=== PATIENT | female | born 1950 ===

== ENCOUNTER 2020-06-09 12:43 | Inpatient (IN) ==
[~2020-06-09 12:43] MED LIST: Buffered Lidocaine 1% SYRIN 1 ml INTRADERM ONE; DiMENhydriNATE IV 50 mg/ml 1 ml VIAL IV PUSH PRN; Lactated Ringers 1000 ml BAG 1,000 ML IV SCH; Naloxone 0.4 mg VIAL 0.4 mg/ml 1 ml VIAL IV PRN; Ondansetron 4 mg VIAL 2 MG/ML 2 ml VIAL IV PRN; oxyCODONE/Acetamin 5/325 mg TAB PO PRN
[2020-06-09] MEDS ORDERED: fentaNYL 250 mcg/5 ml 50 MCG/ML 5 ml VIAL (250 MCG) ONE (12:54)
[2020-06-09] MEDS ORDERED: Propofol 10 MG/ML 20 ML BTL ONE (12:54)
[2020-06-09] MEDS ORDERED: Lidocaine 2% PF 5 ML VIAL ONE (12:54)
[2020-06-09] MEDS ORDERED: Rocuronium 50 mg VIAL 10 mg/ml 5 ml VIAL (50 mg) ONE ×2 (12:54→15:34)
[2020-06-09] MEDS ORDERED: Midazolam 2 mg/2 ml VIAL 1 mg/ml 2 ml VIAL (2 mg) ONE (12:55)
[2020-06-09] MEDS ORDERED: ceFAZolin 2 GM PREMIX 2 GM/50 ML BAG ONE (13:43)
[2020-06-09] MEDS ORDERED: Phenylephrine 40 mcg/mL 10mL (400mcg) SYRINGE ONE (14:45)
[2020-06-09] MEDS ORDERED: fentaNYL 100 mcg/2 ml 50 MCG/ML VIAL ONE ×4 (15:03→19:33)
[2020-06-09] MEDS ORDERED: HYDROmorphone 1 MG/1 ML SYRINGE ONE ×2 (15:11→19:08)
[2020-06-09] MEDS ORDERED: Ondansetron 4 mg VIAL 2 MG/ML 2 ml VIAL ONE ×2 (15:22→18:53)
[2020-06-09] MEDS ORDERED: Dexamethasone IV 4 MG/ML VIAL 1 ml VIAL ONE (15:22)
[2020-06-09] MEDS ORDERED: Ondansetron 4 mg VIAL 2 MG/ML 2 ml VIAL IV PRN (17:35)
[2020-06-09] MEDS ORDERED: Prochlorperazine 5 mg/ml 2 ml VIAL (10 mg) IV PRN (17:40)
[2020-06-09] MEDS ORDERED: hydrALAZINE 20 mg/ml 1 ML Vial IV ONE (17:43)
[2020-06-09] MEDS ORDERED: Albuterol/Ipratropium NEB.SOL (2.5/0.5 MG) 3 ML NEB.SOLN INH PRN (17:46)
[2020-06-09] MEDS ORDERED: hydrALAZINE 20 mg/ml 1 ML Vial IV IV SLOW PU PRN (17:48)
[2020-06-09] MEDS ORDERED: DiMENhydriNATE IV 50 mg/ml 1 ml VIAL ONE (18:05)
[2020-06-09] MEDS: fentaNYL 100 mcg/2 ml 50 MCG/ML VIAL IV PRN ×3 (18:25→19:10)
[2020-06-09] MEDS ORDERED: Prochlorperazine 5 mg/ml 2 ml VIAL (10 mg) ONE (19:38)
[2020-06-09] MEDS ORDERED: Metoclopramide 5 MG/ML VIAL (10 mg) IV SLOW PU ONE (20:01)
[2020-06-09] MEDS ORDERED: Metoclopramide 5 MG/ML VIAL (10 mg) ONE (20:11)
[2020-06-09] MEDS: HYDROmorphone 1 MG/1 ML SYRINGE IV SLOW PU PRN (22:12)
[2020-06-09] MEDS: Lactated Ringers 1000 ml BAG 1,000 ML IV SCH (22:23)
[2020-06-10] MEDS: HYDROcodone/ACET. 7.5/325 LIQ 15 ML UDC PO PRN ×4 (00:11→23:57)
[2020-06-10] MEDS: HYDROmorphone 1 MG/1 ML SYRINGE IV SLOW PU PRN ×4 (01:33→20:50)
[2020-06-10 07:06] LABS: ABS Lymphocytes 1.4 10^3/ul (1.0-4.8); ABS Monocytes 0.9 10^3/ul (0-0.8); Hematocrit 38 % (35-47); Lymphocyte % 10.7 %; Mean Corpuscular HGB Conc 34 g/dL (31-36); Mean Corpuscular Hemoglobin 31 pg (27-31); Mean Corpuscular Volume 90 fL (80-97); Mean Platelet Volume 7.1 fL (7.4-10.4); Platelet Count 373 10^3/uL (150-450); Red Blood Count 4.25 10^6 /uL (3.70-4.87); Red Cell Distribution Width 13 % (10-15); White Blood Count 13.3 10^3/uL (3.5-10.8)
[2020-06-10 08:05] LABS: Anion Gap 5 mmol/L (2-11); Blood Urea Nitrogen 21 mg/dL (6-24); CO2 Carbon Dioxide 30 mmol/L (22-32); Calcium 9.1 mg/dL (8.6-10.3); Chloride 100 mmol/L (101-111); EGFR African American 74.7 (>60); EGFR Non-African American 61.7 (>60); Glucose 123 mg/dL (70-100); Potassium 4.8 mmol/L (3.5-5.0); Sodium 135 mmol/L (135-145)
[2020-06-10] MEDS: Mometasone/Formoter 100/5 MDI INH SCH ×2 (08:44→20:39)
[2020-06-10] MEDS ORDERED: HYDROcodone/ACETAMIN 5/325 mg TAB PO PRN (08:53)
[2020-06-10] MEDS ORDERED: HYDROcodone/ACET. 7.5/325 LIQ 15 ML UDC PO ONE (08:53)
[2020-06-10] MEDS: Cholecalciferol (VIT D3) 1,000 unit TAB PO SCH (09:20)
[2020-06-10 10:44] LABS: Troponin I 0.05 ng/mL (<0.03)
[2020-06-10 11:16] LABS: Magnesium 1.8 mg/dL (1.9-2.7)
[2020-06-10] MEDS: Lactated Ringers 1000 ml BAG 1,000 ML IV SCH (11:49)
[2020-06-10] MEDS ORDERED: Magnesium Sulfate 2 gm BAG 2 GM/50 ML BAG IVPB ONE (12:48)
[2020-06-10 13:07] LABS: Troponin I 0.05 ng/mL (<0.03)
[2020-06-11] MEDS: Lactated Ringers 1000 ml BAG 1,000 ML IV SCH (01:59)
[2020-06-11] MEDS ORDERED: Magnesium Hydroxide LIQ 30 ML UDC PO ONE (08:03)
[2020-06-11] MEDS: Cholecalciferol (VIT D3) 1,000 unit TAB PO SCH (09:31)
[2020-06-11 11:27] VITALS: BP 120/71
[2020-06-11] MEDS: Mometasone/Formoter 100/5 MDI INH SCH (13:10)
[2020-06-11] MEDS: HYDROcodone/ACET. 7.5/325 LIQ 15 ML UDC PO PRN (13:34)
[2020-06-12] MEDS ORDERED: Scopolamine PATCH Remove NOTE PATCH OFF SCH (22:00)
== END 2020-06-11 14:20 | disposition home or self-care (01) | DRG 327 ==
LOC: OR 12:43 → SSU 12:43
PROVIDERS: ADMIT Surgery; ATTEND Surgery